=== PATIENT | female | born 1995 | race Caucasian/White ===

== ENCOUNTER → 2018-07-06 09:14 | Outpatient (CLI) | payer OTHER, MEDICAID ==
[~2018-07-06] VITALS: Ht 160 cm; Wt 107.5 kg
[2018-07-06 10:52] VITALS: Ht 160 cm; Wt 107.5 kg
== END | disposition home or self-care (01) ==
LOC: D.FANS 09:00
DX: E66.01 Morbid (severe) obesity due to excess calories (principal)

== ENCOUNTER → 2019-12-23 13:35 | Outpatient (CLI) | payer OTHER, MEDICAID ==
[2018-07-06 10:52] VITALS: BMI 41.9
[2019-12-23 13:41] LABS: CREATININE - SERUM 0.6 mg/dL (0.6-1.3)
[2019-12-23 13:42] LABS: BASOPHILS 0.1 % (0-2); EOSINOPHILS 0.9 % (0-7); HEMATOCRIT 42.9 % (36.0-48.0); HEMOGLOBIN 13.8 g/dL (12-16); IMMATURE GRANULOCYTES 0.1 % (0-5); LYMPHOCYTES 22.2 % (15-50); MCH 27.1 pg (26.0-34.0); MCHC 32.2 g/dL (31.0-37.0); MCV 84.3 fL (80.0-100.0); MEAN PLATELET VOLUME 8.9 fL (7.4-10.4); MONOCYTES 5.1 % (2-11); NEUTROPHILS 71.6 % (40-80); PLATELET COUNT 176 10x3/uL (130-400); RBC 5.09 10x6/uL (4.00-5.40); RDW 13.4 % (11.5-14.5); WBC 9.2 10x3/uL (4.8-10.8)
== END | disposition home or self-care (01) ==
LOC: D.LABREF 13:35
PROVIDERS: ATTEND Surgery
DX: Z48.815 Encounter for surgical aftercare following surgery on the digestive system (principal); E66.01 Morbid (severe) obesity due to excess calories; G40.89 Other seizures; Z98.84 Bariatric surgery status